=== PATIENT | female | born 1955 | race Caucasian/White ===

== ENCOUNTER 2018-04-02 18:30 | Emergency (ER) | payer OTHER ==
[~2018-04-02] VITALS: Ht 160 cm; Wt 102.0 kg
[2018-04-02 18:42] VITALS: Ht 160 cm; Wt 102.0 kg
[2018-04-02] MEDS ORDERED: KETOROLAC 30 MG INJ IM STA (21:40)
[2018-04-02] MEDS ORDERED: ACET-141 PO (23:25)
[2018-04-02] MEDS ORDERED: NITR-58 PO (23:25)
--- NOTE | 2018-04-02 23:26 | ERD ---
ER Documentation Chief Complaint Chief Complaint BODY ACHES X 2 DAYS, DIZZINESS ROS All systems reviewed and are negative except as per history of present illness. Medications Home Meds Active Scripts Acetaminophen* (Acetaminophen*) 500 MG Extra Strength Tablet, 500 MG PO Q4H PRN for PAIN AND OR ELEVATED TEMP, #30 TAB Prov:KEHINDE OSBORN DO 04/02/18 Nitrofurantoin Monohyd Macrocr* (Macrobid*) 100 Mg Capsr, 100 MG PO BID for uti for 5 Days, #10 CAP Prov:KEHINDE OSBORN DO 04/02/18 Allergies Allergies: Coded Allergies: No Known Allergy (Unverified , 04/02/18) PMhx/Soc Medical and Surgical Hx: pt denies Surgical Hx Hx Miscellaneous Medical Probl: Yes (kidney stones) Hx Alcohol Use: No Hx Substance Use: No Hx Tobacco Use: Yes (quit years ago) Smoking Status: Former smoker Physical Exam Vitals Vital Signs Date Temp Pulse Resp B/P (MAP) Pulse Ox O2 O2 Flow FiO2 Time Delivery Rate 04/02/18 102.2 93 18 128/69 93 18:42 (88) Physical Exam Const: No acute distress Head: Atraumatic Eyes: Normal Conjunctiva ENT: Normal External Ears, Nose and Mouth. Neck: Full range of motion. No meningismus. Resp: Clear to auscultation bilaterally Cardio: Regular rate and rhythm, no murmurs Abd: Soft, non tender, non distended. Normal bowel sounds Skin: No petechiae or rashes Back: No midline or flank tenderness Ext: No cyanosis, or edema Neur: Awake and alert Psych: Normal Mood and Affect Results 24 hrs Laboratory Tests Test 04/02/18 21:50 Urine Color YELLOW Urine Clarity SLIGHTLY CLOUDY Urine pH 5.0 Urine Specific [place] 1.019 Urine Ketones NEGATIVE mg/dL Urine Nitrite NEGATIVE mg/dL Urine Bilirubin NEGATIVE mg/dL Urine Urobilinogen 1+ mg/dL Urine Leukocyte Esterase NEGATIVE Marcelle/ul Urine Microscopic RBC 7 /HPF Urine Microscopic WBC 9 /HPF Urine Squamous Epithelial Cells MODERATE /HPF Urine Bacteria FEW /HPF Urine Mucus MODERATE /HPF Urine Hemoglobin 2+ mg/dL Urine Glucose NEGATIVE mg/dL Urine Total Protein 2+ mg/dl Current Medications Medications Dose Sig/Tegan Start Time Status Last (Trade) Ordered Route PRN Stop Time Admin Dose Reason Admin Ketorolac 30 mg ONCE STAT 04/02/18 DC 04/02/18 Tromethamine IM 21:40 21:57 (Toradol) 04/02/18 21:41 Ceftriaxone 1 gm ONCE ONCE 04/02/18 Sodium IM 23:30 (Rocephin) 04/02/18 23:31 Departure Diagnosis: Primary Impression: UTI (urinary tract infection) Urinary tract infection type: acute cystitis Hematuria presence: without hematuria Qualified Codes: N30.00 - Acute cystitis without hematuria Condition: Fair Patient Instructions: Understanding Urinary Tract Infections (UTIs) Referrals: [facility] YOU HAVE RECEIVED A MEDICAL SCREENING EXAM AND THE RESULTS INDICATE THAT YOU DO NOT HAVE A CONDITION THAT REQUIRES URGENT TREATMENT IN THE EMERGENCY DEPARTMENT. FURTHER EVALUATION AND TREATMENT OF YOUR CONDITION CAN WAIT UNTIL YOU ARE SEEN IN YOUR DOCTORS OFFICE WITHIN THE NEXT 1-2 DAYS. IT IS YOUR RESPONSIBILITY TO MAKE AN APPOINTMENT FOR FOLOW-UP CARE. IF YOU HAVE A PRIMARY DOCTOR --you should call your primary doctor and schedule an appointment IF YOU DO NOT HAVE A PRIMARY DOCTOR YOU CAN CALL OUR PHYSICIAN REFERRAL HOTLINE AT IF YOU CAN NOT AFFORD TO SEE A PHYSICIAN YOU CAN CHOSE FROM THE FOLLOWING [facility] [address] [facility]. [facility] [address] [facility] [facility] [address] [facility]. [facility] [address] [facility]. [facility] [address] [facility]. [facility]. [address] Additional Instructions: Call your primary care doctor TOMORROW for an appointment during the next 1-2 days.See the doctor sooner or return here if your condition worsens before your appointment time. Llame al doctor MAANA y marjorie lucie STEPHANIE PARA DENTRO DE 1-2 VAZQUEZ.Dgale a la secretaria que nosotros le instruimos hacer esta stephanie.Avise o llame si dailey condicin se empeora antes de la stephanie. Regresa aqui si peor o no mejor. KEHINDE OSBORNb 17, 2019 23:26
[2018-04-02] MEDS ORDERED: CEFTRIAXONE 1 GM INJ IM ONE (23:30)
[2018-04-02 23:51] VITALS: BP 100/55; PULSE 99; RESP 18
== END 2018-04-02 23:52 | disposition home or self-care (01) ==
LOC: FTE 18:30
DX: N30.00 Acute cystitis without hematuria (principal); Z87.891 Personal history of nicotine dependence
CPT/HCPCS: 81001; 87400; 96372; J0696; J1885; Z7502

== ENCOUNTER 2018-05-16 10:12 | Day surgery (SDC) | payer OTHER ==
[~2018-05-16] VITALS: Ht 162.6 cm; Wt 100.2 kg
[~2018-05-16 10:12] MED LIST: ACET-141 PO; NITR-58 PO
[2018-05-16 10:48] VITALS: Ht 162.6 cm; Wt 100.2 kg
[2018-05-16 11:00] VITALS: BP 146/77; PULSE 83; RESP 20
[2018-05-16] MEDS ORDERED: amlodipine PO (11:01)
[2018-05-16] MEDS ORDERED: ibuprofen PO (11:01)
[2018-05-16] MEDS ORDERED: losartan PO (11:01)
[2018-05-16] MEDS ORDERED: hctz PO (11:01)
[2018-05-16] MEDS ORDERED: MIDAZOLAM 1 MG/ML 2 ML INJ ONE ×3 (11:56)
[2018-05-16] MEDS ORDERED: FENTAnyl 50 MCG/ML VIAL ONE (11:56)
[2018-05-16 11:59] VITALS: BP 130/65; PULSE 75; RESP 16
== END 2018-05-16 13:22 | disposition home or self-care (01) ==
LOC: GIL 10:12
PROVIDERS: ATTEND Internal Medicine Gastroenterology
DX: Z12.11 Encounter for screening for malignant neoplasm of colon (principal); K57.30 Diverticulosis of large intestine without perforation or abscess without bleeding; D12.3 Benign neoplasm of transverse colon; K62.1 Rectal polyp
CPT/HCPCS: 45380; 88305; J2250; J3010; Z7610

== ENCOUNTER 2018-06-25 09:56 | Inpatient (IN) | payer OTHER ==
[~2018-06-25] VITALS: Ht 162.6 cm; Wt 98.0 kg
[~2018-06-25 09:56] MED LIST changes: -ACET-141 PO; -NITR-58 PO; +amlodipine PO; +hctz PO; +ibuprofen PO; +losartan PO
--- NOTE | 2018-06-25 13:50 | ERD ---
ER Documentation Chief Complaint Chief Complaint sob x2wks, diarrhea & nausea x1wk HPI 62-year-old female history of hypertension presents to the ED complaining of several week history of worsening generalized weakness and exertional dyspnea. Denies orthopnea or PND. Denies chest pain, palpitations, cough or hemoptysis. No leg pain or swelling. No URI symptoms or body aches. Generalized weakness but no headache, visual changes, focal weakness or numbness. No fevers or chills. ROS All systems reviewed and are negative except as per history of present illness. Medications Home Meds Reported Medications [losartan] No Conflict Check, PO DAILY 05/16/18 [ibuprofen] No Conflict Check, PO DAILY PRN for PAIN AND/OR INFLAMMATION 05/16/18 [hctz] No Conflict Check, PO DAILY 05/16/18 [amlodipine] No Conflict Check, PO DAILY 05/16/18 Allergies Allergies: Coded Allergies: tetracycline (Verified Allergy, Severe, 05/16/18) PMhx/Soc History of Surgery: No Anesthesia Reaction: No Hx Neurological Disorder: No Hx Respiratory Disorders: No Hx Cardiac Disorders: Yes (Hypertension) Hx Psychiatric Problems: No Hx Alcohol Use: No Hx Substance Use: No Hx Tobacco Use: No Smoking Status: Never smoker FmHx No stroke or cancer Physical Exam Vitals Vital Signs Date Temp Pulse Resp B/P (MAP) Pulse Ox O2 O2 Flow FiO2 Time Delivery Rate 06/25/18 Nasal 11:27 Cannula 06/25/18 98.1 98 20 127/57 93 10:09 (80) Physical Exam Const: Mild distress Head: Atraumatic Eyes: Pale Conjunctiva ENT: Normal External Ears, Nose and Mouth. Neck: Full range of motion. No JVD. Nontender. Resp: Breath sounds are equal and clear to auscultation bilaterally Cardio: Regular rate and rhythm, no murmurs Abd: Soft, obese, non tender, non distended. Normal bowel sounds Skin: No petechiae or rashes Back: No midline or flank tenderness Ext: No cyanosis. 1+ pretibial edema Neur: Awake and alert. No focal deficit Psych: Anxious but not depressed. Result Diagram: 06/25/18 1249 06/25/18 1249 Results 24 hrs Laboratory Tests Test 06/25/18 12:49 White Blood Count 63.3 10^3/ul Red Blood Count 2.08 10^6/ul Hemoglobin 6.5 g/dl Hematocrit 20.5 % Mean Corpuscular Volume 98.6 fl Mean Corpuscular Hemoglobin 31.3 pg Mean Corpuscular Hemoglobin Concent 31.7 g/dl Red Cell Distribution Width 19.1 % Platelet Count 71 10^3/UL Mean Platelet Volume 13.0 fl Immature Granulocytes % 2.100 % Neutrophils % % Lymphocytes % % Monocytes % % Eosinophils % % Basophils % % Nucleated Red Blood Cells % 0.2 /100WBC Immature Granulocytes # 1.320 10^3/ul Neutrophils # 10^3/ul Lymphocytes # 10^3/ul Monocytes # 10^3/ul Eosinophils # 10^3/ul Basophils # 10^3/ul Nucleated Red Blood Cells # 10^3/ul Sodium Level 139 mmol/L Potassium Level 4.1 mmol/L Chloride Level 99 mmol/L Carbon Dioxide Level 32 mmol/L Anion Gap 8 Blood Urea Nitrogen 12 mg/dl Creatinine 0.63 mg/dl Est Glomerular Filtrat Rate mL/min > 60 mL/min Glucose Level 107 mg/dl Calcium Level 9.0 mg/dl Total Bilirubin 0.2 mg/dl Direct Bilirubin 0.00 mg/dl Indirect Bilirubin 0.2 mg/dl Aspartate Amino Transf (AST/SGOT) 33 IU/L Alanine Aminotransferase (ALT/SGPT) 14 IU/L Alkaline Phosphatase 68 IU/L Troponin I 0.039 ng/ml B-Type Natriuretic Peptide 253 PG/ML Total Protein 7.5 g/dl Albumin 3.9 g/dl Globulin 3.60 g/dl Albumin/Globulin Ratio 1.08 Procedures/MDM DOCUMENTS REVIEWED: ED nurse, prior records EKG: Time: 10: 14. Sinus rhythm. Ventricular rate 94. Normal DE and QRS. Nonspecific ST-T wave changes. No acute elevation or depression. No ectopy. My interpretation. IMAGING: Chest AP portable. Cardiac silhouette is normal. The costophrenic angles are clear. No effusions or infiltrates. Aortic calcifications. No abnormalities of the bony thorax. My interpretation. MEDICAL DECISION MAKIN-year-old female history of hypertension presents to the ED complaining of several week history of worsening generalized weakness and exertional dyspnea. CBC reveals critical leukocytosis, anemia and thrombocytopenia. Chemistry to evaluate for renal insufficiency, electrolyte abnormalities and hyperglycemia is unremarkable. EKG negative for acute is chemic changes or dysrhythmia. Troponin is negative. No radiographic evidence of congestive heart failure or pneumonia. Patient with generalized weakness but no focal weakness, numbness, headache or indication for neuroimaging. Pulmonary embolism considered but imaging deferred at this time. Broad differential considered including but not limited to leukemia. Admit to [facility] for heme/on consultation, further evaluation and management. PATIENT CARE TRANSITIONED: Time: 13: 45, Dr. Heather Pyle. Counseled [patient and family] regarding diagnosis, diagnostic results and plan for admission. Departure Diagnosis: Primary Impression: Shortness of breath Additional Impressions: Leukocytosis Leukocytosis type: unspecified Qualified Codes: D72.829 - Elevated white blood cell count, unspecified Severe anemia Thrombocytopenia Condition: Serious BRANDON ACOSTA MD June 25, 2018 13:50
[2018-06-25] MEDS ORDERED: ONDANSETRON 4 MG INJ IV PRN (14:00)
[2018-06-25] MEDS ORDERED: ACETAMINOPHEN 325 MG TAB PO PRN (14:00)
[2018-06-25] MEDS ORDERED: SOD CHLORIDE 0.9% 1,000 ML IV SCH (14:06)
[2018-06-25] MEDS ORDERED: LOSA100T15 PO (14:20)
[2018-06-25] MEDS ORDERED: HYDR25TA6 PO (14:21)
[2018-06-25] MEDS ORDERED: AMLO-147 PO (14:21)
[2018-06-25] MEDS ORDERED: PRED10TA PO (14:21)
[2018-06-25] MEDS ORDERED: CYCL5TAB PO (14:22)
[2018-06-25] MEDS ORDERED: ACETAMINOPHEN 650 MG SUPP PR PRN (14:30)
[2018-06-25] MEDS ORDERED: NACL 0.9% 3 ML SYG IV SCH (14:30)
[2018-06-25] MEDS ORDERED: DOCUSATE SODIUM 100 MG CAP PO PRN (14:30)
[2018-06-25] MEDS ORDERED: BISACODYL (EC) 5 MG TAB PO PRN (14:30)
[2018-06-25] MEDS ORDERED: MAGNESIUM HYDROXIDE 30ML CUP PO PRN (14:30)
--- NOTE | 2018-06-25 14:35 | QN ---
Documentation Comment [id number] TUAN VIERA MD June 25, 2018 14:35
[2018-06-25 16:40] VITALS: BP 141/67; PULSE 70; RESP 18
[2018-06-25 16:54] VITALS: Ht 162.6 cm; Wt 98.0 kg
--- NOTE | 2018-06-25 17:38 | HP ---
DATE OF ADMISSION: 06/25/2018 HISTORY OF PRESENT ILLNESS: The patient is a 62-year-old female with no significant past medical his tory, presented with weakness, short of breath. No chest pain or palpitation. Denies any fever, chi lls or rigors. Blood pressure was 113/53, afebrile in the ER. Laboratory data and chest x-ray were unremarkable. WBC was 16.3, hematocrit of 20.5, platelet count of 71, sodium 139, potassium 4.1. Th e patient's BNP was 253. The patient is admitted for further management. Denies any nausea, vomitin g, chest pain, abdominal pain, hematemesis or melena. PAST MEDICAL HISTORY: History of colonoscopy per patient negative. ALLERGY HISTORY: TETRACYCLINE. FAMILY HISTORY: Negative. SOCIAL HISTORY: Negative for smoking, alcohol or drug abuse. MEDICATIONS AT HOME: Qqse-[id number] medication. REVIEW OF SYSTEMS: HEENT: Unremarkable for headache, diplopia, blurred vision, sore throat, earache or nasal discharge. RESPIRATORY: Unremarkable for hemoptysis. CARDIOVASCULAR: No chest pain or palpitation. GENITOURINARY: No hematemesis, melena, swelling. CENTRAL NERVOUS SYSTEMS: Unremarkable. PHYSICAL EXAMINATION: GENERAL: Overweight female, awake, alert. VITAL SIGNS: Stable. HEENT: Head is atraumatic, normocephalic. Pupils are equal, reactive. NECK: Supple. There is no JVD. LUNGS: Clear. CARDIOVASCULAR: S1, S2 are normal. ABDOMEN: Soft. Bowel sounds are positive. No palpable mass or hepatosplenomegaly. No guarding, re bound tenderness. EXTREMITIES: There is no cyanosis, clubbing or edema. CENTRAL NERVOUS SYSTEM: The patient is awake, alert with no focal deficit. LABORATORY DATA: WBC 16.3, hemoglobin 6.5, platelet count of 71. Sodium 139, potassium 4.1. IMPRESSION: 1. The patient has symptomatic anemia. 2. I doubt gastrointestinal bleed. 3. Leukocytosis. 4. Pancytopenia. 5. Rule out leukemia. 6. Thrombocytopenia. PLAN: Give this patient IV fluid, gentle and PPI. The patient will benefit from hematology consulta tion, but before that, we will order CT of the abdomen. Anemia study, B12, folic acid, iron, TIBC, f erritin, retic count, LDH and protein. Orders were done. Dictated By: TUAN VIERA MD BS/NTS Conf#: [id number] DID#: [id number] CC: DIEGO BAKER MD;*EndCC*
[2018-06-25 19:59] VITALS: BP 124/58; PULSE 98; RESP 20
[2018-06-26 00:15] VITALS: BP 126/60; PULSE 86; RESP 18
[2018-06-26 02:00] VITALS: BP 133/60; PULSE 89; RESP 18
[2018-06-26] MEDS: PANTOPRAZOLE (EC) 40 MG TAB PO SCH (05:53)
[2018-06-26] MEDS: ACETAMINOPHEN 325 MG TAB PO PRN ×2 (05:55→18:15)
--- NOTE | 2018-06-26 12:43 | CONS ---
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, flow cytometry is pending -check LDH, uric acid, PTT, PT, fibrinogen -needs bone marrow biopsy and aspirate for FISH and cytogenetics and molecular analysis -HLA typing -check ECHO -will need mediport -NEUTROPENIC PRECAUTIONS -ALL BLOOD PRODUCTS SHOULD BE LEUKOCYTE DEPLETION AND IRRADIATED KEEP HGB >7 AND PLT >10k CMV TESTING DO NOT USE GROWTH FACTORS IN INDUCTION PHASE -have discussed with pt that we are awaiting flow cytometry to confirm and after that molecular analysis and cytogenetics will allow us best to determine her treatment and prognosis -given complexity of care required for AML she needs to be transferred to [facility] -also needs to be evaluated by transplant team at some point depending on above study results Consultation Date/Type/Reason Admit Date/Time June 25, 2018 at 13:51 Date/Time of Note DATE: 06/26/18 TIME: 12:43 Hx of Present Illness The patient is a 62-year-old female with no significant past medical history, presented with weakness, short of breath. Here labs showed: Laboratory Tests Test 06/25/18 12:49 06/26/18 04:22 Blood Urea Nitrogen 12 mg/dl Carbon Dioxide Level 32 mmol/L Chloride Level 99 mmol/L Creatinine 0.63 mg/dl Glucose Level 107 mg/dl Hematocrit 20.5 % 21.4 % Hemoglobin 6.5 g/dl 6.7 g/dl Platelet Count 71 10^3/UL 56 10^3/UL Potassium Level 4.1 mmol/L Sodium Level 139 mmol/L White Blood Count 63.3 10^3/ul 54.0 10^3/ul I have received a call from pathology who sees a significant number of myeloblasts in the peripheral blood. Flow cytometry is pending. She denies any significant chemical exposures and has no known h/o of MDS Constitutional: no complaints, improved Eyes: no complaints ENT: no complaints Respiratory: shortness of breath Cardiovascular: no complaints Gastrointestinal: no complaints Genitourinary: no complaints Musculoskeletal: no complaints Skin: no complaints Neurologic: no complaints Endocrine: no complaints Lymphatic: no complaints Psychological: no complaints, nl mood/affect Past Medical History Home Meds Reported Medications Cyclobenzaprine Hcl* (Cyclobenzaprine Hcl*) 5 Mg Tablet, 5 MG PO QHS, #90 TAB 06/25/18 Amlodipine Besylate* (Amlodipine Besylate*) 10 Mg Tablet, 10 MG PO DAILY, #30 TAB 06/25/18 Hydrochlorothiazide* (Hydrochlorothiazide*) 25 Mg Tab, 25 MG PO DAILY, #30 TAB 06/25/18 Prednisone* (Prednisone*) 10 Mg Tab, 10 MG PO BID, TAB 06/25/18 Losartan Potassium* (Losartan Potassium*) 100 Mg Tablet, 100 MG PO DAILY, TAB 06/25/18 Discontinued Reported Medications [losartan] No Conflict Check, PO DAILY 05/16/18 [ibuprofen] No Conflict Check, PO DAILY PRN for PAIN AND/OR INFLAMMATION 05/16/18 [hctz] No Conflict Check, PO DAILY 05/16/18 [amlodipine] No Conflict Check, PO DAILY 05/16/18 Medications Current Medications Ondansetron HCl (Zofran Inj) 4 mg BRIDGE ORDER PRN IV NAUSEA/VOMITING; Start 06/25/18 at 14:00; Stop 06/26/18 at 13:59 Acetaminophen (Tylenol Tab) 650 mg ER BRIDGE PRN PO .MILD PAIN 1-3 OR TEMP; Start 06/25/18 at 14:00; Stop 06/26/18 at 13:59 Sodium Chloride 1,000 ml @ 40 mls/hr Q24H IV Last administered on 06/25/18at 18:17; Admin Dose 40 MLS/HR; Start 06/25/18 at 14:06 IV Flush (NS 3 ml) 3 ml PER PROTOCOL IV ; Start 06/25/18 at 14:30 Ondansetron HCl (Zofran Inj) 4 mg Q6H PRN IV NAUSEA/VOMITING; Start 06/25/18 at 14:30 Acetaminophen (Tylenol Tab) 650 mg Q6H PRN PO .PAIN 1-3 OR TEMP Last administered on 06/26/18at 05:55; Admin Dose 650 MG; Start 06/25/18 at 14:30 Acetaminophen (Tylenol Supp) 650 mg Q6H PRN DC .PAIN 1-3 OR TEMP; Start 06/25/18 at 14:30 Docusate Sodium (Colace) 100 mg Q12H PRN PO .CONSTIPATION; Start 06/25/18 at 14:30 Magnesium Hydroxide (Milk Of Mag) 30 ml DAILY PRN PO .CONSTIPATION; Start 06/25/18 at 14:30 Bisacodyl (Dulcolax) 5 mg DAILY PRN PO .CONSTIPATION; Start 06/25/18 at 14:30 Pantoprazole (Protonix Tab) 40 mg DAILY@06 PO Last administered on 06/26/18at 05:53; Admin Dose 40 MG; Start 06/26/18 at 06:00 Allergies: Coded Allergies: tetracycline (Verified Allergy, Severe, 06/25/18) Social History Smoking Status: Former smoker Exam/Review of Systems Exam Vitals Vital Signs Date Temp Pulse Resp B/P (MAP) Pulse Ox O2 O2 Flow FiO2 Time Delivery Rate 06/26/18 98.2 89 18 133/60 93 Room Air 02:00 (84) 06/25/18 2 14:24 Intake and Output 06/25/18 06/25/18 06/26/18 1515:00 23:00 07:00 IntakeIntake Total 520 ml 400 ml BalanceBalance 520 ml 400 ml Constitutional: alert, oriented, well developed Psych: no complaints, nl mood/affect Respiratory: normal air movement Results Result Diagram: 06/26/18 0422 06/25/18 1249 Results 24hrs Laboratory Tests Test 06/25/18 12:49 06/25/18 23:50 06/26/18 04:22 06/26/18 06:14 White Blood 63.3 H 54.0 H Count Red Blood Count 2.08 L 2.20 L Hemoglobin 6.5 *L 6.7 *L Hematocrit 20.5 L 21.4 L Mean 98.6 97.3 Corpuscular Volume Mean 31.3 30.5 Corpuscular Hemoglobin Mean 31.7 L 31.3 L Corpuscular Hemoglobin Conc ent Red Cell 19.1 H 20.4 H Distribution Width Platelet Count 71 L 56 #L Mean Platelet 13.0 H 11.9 H Volume Immature 2.100 H 1.900 H Granulocytes % Neutrophils % Segmented 2 L Neutrophils % (Manual) Band 3 2 Neutrophils % (Manual) Lymphocytes % Lymphocytes % 24 19 (Manual) Reactive 5 H 2 H Lymphocytes % (Manual) Monocytes % Monocytes % 5 13 H (Manual) Eosinophils % Basophils % Metamyelocytes 1 H 2 H % (manual) Myelocytes % 3 H 1 H (Manual) Blast Cells % 57.0 H 60.0 H (Manual) Nucleated Red 0.2 H 1 H Blood Cells % Immature 1.320 H 1.020 H Granulocytes # Neutrophils # Neutrophils # 2.4 (Manual) Band 1.8 H 1.0 H Neutrophils # Lymphocytes 15.1 H 10.2 H (Manual) Lymphocytes # Reactive 3.1 H 1.0 H Lymphocytes # Monocytes # Monocytes # 3.1 H 7.0 H (Manual) Eosinophils # Basophils # Metamyelocytes 0.6 H 1.0 H # Myelocytes # 1.8 H 0.5 H Nucleated Red Blood Cells # Platelet SIG DECREASED SIG DECREASED Estimate Giant Platelets 1 H Polychromasia 3+ 3+ Poikilocytosis 1+ Anisocytosis 3+ 1+ Microcytosis 3+ 1+ Sodium Level 139 Potassium Level 4.1 Chloride Level 99 Carbon Dioxide 32 H Level Anion Gap 8 Blood Urea 12 Nitrogen Creatinine 0.63 Est Glomerular > 60 Filtrat Rate mL/min Glucose Level 107 Calcium Level 9.0 Total Bilirubin 0.2 Direct 0.00 Bilirubin Indirect 0.2 Bilirubin Aspartate Amino 33 Transf (AST/SGO T) Alanine 14 Aminotransferas e (ALT/SGPT) Alkaline 68 Phosphatase Lactate 2460 H Dehydrogenase Troponin I 0.039 B-Type 253 H Natriuretic Peptide Total Protein 7.5 Albumin 3.9 Globulin 3.60 H Albumin/Globuli 1.08 n Ratio Urine Color YELLOW Urine Clarity CLEAR Urine pH 7.0 Urine Specific 1.010 [place] Urine Ketones NEGATIVE Urine Nitrite NEGATIVE Urine Bilirubin NEGATIVE Urine NEGATIVE Urobilinogen Urine Leukocyte NEGATIVE Esterase Urine NEGATIVE Hemoglobin Urine Glucose NEGATIVE Urine Total NEGATIVE Protein Eosinophils % 1 (Manual) Hemoglobin A1c 7.6 H Lab Scanned BLOOD TRANSFUS Report ION Medications Medication Current Medications Ondansetron HCl (Zofran Inj) 4 mg BRIDGE ORDER PRN IV NAUSEA/VOMITING; Start 06/25/18 at 14:00; Stop 06/26/18 at 13:59 Acetaminophen (Tylenol Tab) 650 mg ER BRIDGE PRN PO .MILD PAIN 1-3 OR TEMP; Start 06/25/18 at 14:00; Stop 06/26/18 at 13:59 Sodium Chloride 1,000 ml @ 40 mls/hr Q24H IV Last administered on 06/25/18at 18:17; Admin Dose 40 MLS/HR; Start 06/25/18 at 14:06 IV Flush (NS 3 ml) 3 ml PER PROTOCOL IV ; Start 06/25/18 at 14:30 Ondansetron HCl (Zofran Inj) 4 mg Q6H PRN IV NAUSEA/VOMITING; Start 06/25/18 at 14:30 Acetaminophen (Tylenol Tab) 650 mg Q6H PRN PO .PAIN 1-3 OR TEMP Last administered on 06/26/18at 05:55; Admin Dose 650 MG; Start 06/25/18 at 14:30 Acetaminophen (Tylenol Supp) 650 mg Q6H PRN DC .PAIN 1-3 OR TEMP; Start 06/25/18 at 14:30 Docusate Sodium (Colace) 100 mg Q12H PRN PO .CONSTIPATION; Start 06/25/18 at 14:30 Magnesium Hydroxide (Milk Of Mag) 30 ml DAILY PRN PO .CONSTIPATION; Start 06/25/18 at 14:30 Bisacodyl (Dulcolax) 5 mg DAILY PRN PO .CONSTIPATION; Start 06/25/18 at 14:30 Pantoprazole (Protonix Tab) 40 mg DAILY@06 PO Last administered on 06/26/18at 05:53; Admin Dose 40 MG; Start 06/26/18 at 06:00 JOSÉ MIGUEL WASSERMAN June 26, 2018 12:43
[2018-06-26 14:24] VITALS: BP 140/67; PULSE 99; RESP 16
--- NOTE | 2018-06-26 14:58 | PN ---
Date/Time of Note Date/Time of Note DATE: 06/26/18 TIME: 14:52 Assessment/Plan VTE Prophylaxis Risk score (from Ns)>0 risk: 4 SCD applied (from Ns): No SCD contraindicated: low risk/ambulating Pharmacological prophylaxis: NA/contraindicated Pharm contraindication: low risk/ambulating Lines/Catheters IV Catheter Type (from [facility] Peripheral IV Urinary Cath still in place: No Assessment/Plan Assessment/Plan 62 Y/O with 1 symptomatic anemia. with leukccytosis 2 Pancytopenia. 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 Tejada who requested the patient to be transferred to a higher level of care at [facility] or [facility] for intense chemotherapy DC IV fluids Status post 1 unit of blood, recheck H&H spoke To director case/ [facility] now for urgent transfer Also get ABG Result Diagram: 06/26/18 0422 06/25/18 1249 Results 24hrs Laboratory Tests Test 06/25/18 23:50 06/26/18 04:22 06/26/18 06:14 Urine Color YELLOW Urine Clarity CLEAR Urine pH 7.0 Urine Specific [place] 1.010 Urine Ketones NEGATIVE Urine Nitrite NEGATIVE Urine Bilirubin NEGATIVE Urine Urobilinogen NEGATIVE Urine Leukocyte Esterase NEGATIVE Urine Hemoglobin NEGATIVE Urine Glucose NEGATIVE Urine Total Protein NEGATIVE White Blood Count 54.0 H Red Blood Count 2.20 L Hemoglobin 6.7 *L Hematocrit 21.4 L Mean Corpuscular Volume 97.3 Mean Corpuscular Hemoglobin 30.5 Mean Corpuscular 31.3 L Hemoglobin Concent Red Cell Distribution Width 20.4 H Platelet Count 56 #L Mean Platelet Volume 11.9 H Immature Granulocytes % 1.900 H Neutrophils % Band Neutrophils % (Manual) 2 Lymphocytes % Lymphocytes % (Manual) 19 Reactive Lymphocytes 2 H % (Manual) Monocytes % Monocytes % (Manual) 13 H Eosinophils % Eosinophils % (Manual) 1 Basophils % Metamyelocytes % (manual) 2 H Myelocytes % (Manual) 1 H Blast Cells % (Manual) 60.0 H Nucleated Red Blood Cells % 1 H Immature Granulocytes # 1.020 H Neutrophils # Band Neutrophils # 1.0 H Lymphocytes (Manual) 10.2 H Lymphocytes # Reactive Lymphocytes # 1.0 H Monocytes # Monocytes # (Manual) 7.0 H Eosinophils # Basophils # Metamyelocytes # 1.0 H Myelocytes # 0.5 H Nucleated Red Blood Cells # Platelet Estimate SIG DECREASED Polychromasia 3+ Anisocytosis 1+ Microcytosis 1+ Hemoglobin A1c 7.6 H Lab Scanned Report BLOOD TRANSFUSION Subjective 24 Hr Interval Summary Free Text/Dictation HB 6.7 today sp 1 unit PRBC Exam/Review of Systems Exam Vitals Vital Signs Date Temp Pulse Resp B/P (MAP) Pulse Ox O2 O2 Flow FiO2 Time Delivery Rate 06/26/18 98.5 99 16 140/67 94 14:24 (91) 06/26/18 Room Air 02:00 06/25/18 2 14:24 Intake and Output 06/25/18 06/25/18 06/26/18 1515:00 23:00 07:00 IntakeIntake Total 520 ml 400 ml BalanceBalance 520 ml 400 ml Exam HEENT: Head is atraumatic, normocephalic. Pupils are equal, reactive. NECK: Supple. There is no JVD. LUNGS: Clear. CARDIOVASCULAR: S1, S2 are normal. ABDOMEN: Soft. Bowel sounds are positive. No palpable mass or hepatosplenomegaly. No guarding, rebound tenderness. EXTREMITIES: There is no cyanosis, clubbing or edema. CENTRAL NERVOUS SYSTEM: The patient is awake, alert with no focal defi Results Results 24hrs Laboratory Tests Test 06/25/18 23:50 06/26/18 04:22 06/26/18 06:14 Urine Color YELLOW Urine Clarity CLEAR Urine pH 7.0 Urine Specific [place] 1.010 Urine Ketones NEGATIVE Urine Nitrite NEGATIVE Urine Bilirubin NEGATIVE Urine Urobilinogen NEGATIVE Urine Leukocyte Esterase NEGATIVE Urine Hemoglobin NEGATIVE Urine Glucose NEGATIVE Urine Total Protein NEGATIVE White Blood Count 54.0 H Red Blood Count 2.20 L Hemoglobin 6.7 *L Hematocrit 21.4 L Mean Corpuscular Volume 97.3 Mean Corpuscular Hemoglobin 30.5 Mean Corpuscular 31.3 L Hemoglobin Concent Red Cell Distribution Width 20.4 H Platelet Count 56 #L Mean Platelet Volume 11.9 H Immature Granulocytes % 1.900 H Neutrophils % Band Neutrophils % (Manual) 2 Lymphocytes % Lymphocytes % (Manual) 19 Reactive Lymphocytes 2 H % (Manual) Monocytes % Monocytes % (Manual) 13 H Eosinophils % Eosinophils % (Manual) 1 Basophils % Metamyelocytes % (manual) 2 H Myelocytes % (Manual) 1 H Blast Cells % (Manual) 60.0 H Nucleated Red Blood Cells % 1 H Immature Granulocytes # 1.020 H Neutrophils # Band Neutrophils # 1.0 H Lymphocytes (Manual) 10.2 H Lymphocytes # Reactive Lymphocytes # 1.0 H Monocytes # Monocytes # (Manual) 7.0 H Eosinophils # Basophils # Metamyelocytes # 1.0 H Myelocytes # 0.5 H Nucleated Red Blood Cells # Platelet Estimate SIG DECREASED Polychromasia 3+ Anisocytosis 1+ Microcytosis 1+ Hemoglobin A1c 7.6 H Lab Scanned Report BLOOD TRANSFUSION Medications Medication Current Medications IV Flush (NS 3 ml) 3 ml PER PROTOCOL IV ; Start 06/25/18 at 14:30 Ondansetron HCl (Zofran Inj) 4 mg Q6H PRN IV NAUSEA/VOMITING; Start 06/25/18 at 14:30 Acetaminophen (Tylenol Tab) 650 mg Q6H PRN PO .PAIN 1-3 OR TEMP Last administered on 06/26/18at 05:55; Admin Dose 650 MG; Start 06/25/18 at 14:30 Acetaminophen (Tylenol Supp) 650 mg Q6H PRN MD .PAIN 1-3 OR TEMP; Start 06/25/18 at 14:30 Docusate Sodium (Colace) 100 mg Q12H PRN PO .CONSTIPATION; Start 06/25/18 at 14:30 Magnesium Hydroxide (Milk Of Mag) 30 ml DAILY PRN PO .CONSTIPATION; Start 06/25/18 at 14:30 Bisacodyl (Dulcolax) 5 mg DAILY PRN PO .CONSTIPATION; Start 06/25/18 at 14:30 Pantoprazole (Protonix Tab) 40 mg DAILY@06 PO Last administered on 06/26/18at 05:53; Admin Dose 40 MG; Start 06/26/18 at 06:00 PAULA FAGAN MD June 26, 2018 14:58
[2018-06-26] MEDS ORDERED: FUROSEMIDE 20 MG INJ IV ONE (15:00)
[2018-06-26 16:46] VITALS: BP 167/78; PULSE 102
[2018-06-26 18:00] VITALS: PULSE 106
[2018-06-26 20:00] VITALS: BP 132/64; PULSE 102; RESP 18
[2018-06-26] MEDS ORDERED: CEFTRIAXONE 1 GM/50 ML (PMX) 50 ML IVPB SCH (20:00)
[2018-06-27 01:15] VITALS: BP 118/57; PULSE 93; RESP 18
[2018-06-27] MEDS: PANTOPRAZOLE (EC) 40 MG TAB PO SCH (05:12)
[2018-06-27 08:19] VITALS: BP 105/54; PULSE 94; RESP 18
[2018-06-27] MEDS: ONDANSETRON 4 MG INJ IV PRN (09:44)
--- NOTE | 2018-06-27 11:06 | CONS ---
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 THis should be done at the tertiary care center where she will be treated -HLA typing -check ECHO -will need mediport -NEUTROPENIC PRECAUTIONS. CEFIPIME STARTED given low grade fevers -ALL BLOOD PRODUCTS SHOULD BE LEUKOCYTE DEPLETION AND IRRADIATED KEEP HGB >7 AND PLT >10k CMV TESTING DO NOT USE GROWTH FACTORS IN INDUCTION PHASE -have discussed with pt that we are awaiting flow cytometry to confirm and after that molecular analysis and cytogenetics will allow us best to determine her treatment and prognosis -given complexity of care required for AML she needs to be transferred to [facility] -also needs to be evaluated by transplant team at some point depending on above study results Consultation Date/Type/Reason Admit Date/Time June 25, 2018 at 13:51 Initial Consult Date 06/26/18 Type of Consult hematology Reason for Consultation AML Requesting Provider: TUAN VIERA Date/Time of Note DATE: 06/27/18 TIME: 10:55 24 HR Interval Summary Free Text/Dictation pt continues to wait for a bed. still with low grade fevers Exam/Review of Systems Exam Vitals Vital Signs Date Temp Pulse Resp B/P (MAP) Pulse Ox O2 O2 Flow FiO2 Time Delivery Rate 06/27/18 99.6 94 18 105/54 94 08:19 (71) 06/27/18 3.0 05:32 06/26/18 Nasal 21:53 Cannula Intake and Output 06/26/18 06/26/18 06/27/18 1515:00 23:00 07:00 IntakeIntake Total 760 ml 1380 ml 50 ml BalanceBalance 760 ml 1380 ml 50 ml Constitutional: alert, oriented Psych: anxiety, depression Head: normocephalic Eyes: nl conjunctiva ENMT: nl external ears & nose Neck: supple Respiratory: clear to auscultation Cardiovascular: regular rate and rhythm Gastrointestinal: soft Musculoskeletal: nl extremities to inspection Results Result Diagram: 06/27/18 0430 06/27/18 0430 Results 24hrs Laboratory Tests Test 06/26/18 15:00 5/13/19 15:36 06/26/18 17:51 06/27/18 04:30 Blood Gas Blood arterial Specimen Source Arterial Blood 06/26/2018 7:40:0 Date Drawn 0 PM Arterial Blood pH 7.494 H (Temp corrected) Arterial Blood 38.9 pCO2 (Temp correct) Arterial Blood 57.7 L pO2 (Temp corrected) Arterial Blood 29.2 H HCO3 Arterial Blood 5.5 H Base Excess Arterial Blood 90.5 L Oxygen Saturation Yared Test ACCEPTAB Arterial Blood Right Radial Gas Puncture Site Arterial 0.2 Blood Carboxyhemo globin Arterial Blood 0.8 Methemoglobin Blood Gas A-a O2 88.8 H Differential Oxyhemoglobin 89.6 L Percent Blood Gas 37.0 Temperature Blood Gas NASAL CANNULA Modality FiO2 27.0 Blood Gas RTR Notified Whom Blood Gas 06/26/2018 7:57:0 Notified Time 0 PM Hemoglobin 7.6 L 7.8 L Hematocrit 23.9 L 24.1 L Prothrombin Time 14.6 Prothrombin Time 1.1 Ratio INR International 1.13 Normalized Ratio Activated 34.4 Partial Thrombopl ast Time Uric Acid 8.5 H White Blood Count 55.9 H Red Blood Count 2.53 L Mean Corpuscular 95.3 Volume Mean Corpuscular 30.8 Hemoglobin Mean Corpuscular 32.4 Hemoglobin Concen t Red Cell 20.2 H Distribution Width Platelet Count 46 L Mean Platelet 13.2 H Volume Immature 2.400 H Granulocytes % Neutrophils % Segmented 8 L Neutrophils % (Manual) Lymphocytes % Lymphocytes % 17 (Manual) Monocytes % Monocytes % 9 (Manual) Eosinophils % Basophils % Myelocytes % 3 H (Manual) Promyelocytes % 1 H (Manual) Blast Cells % 62.0 H (Manual) Nucleated Red 0.2 H Blood Cells % Immature 1.360 H Granulocytes # Neutrophils # Lymphocytes 9.5 H (Manual) Lymphocytes # Monocytes # Monocytes # 5.0 H (Manual) Eosinophils # Basophils # Myelocytes # 1.6 H Promyelocytes # 0.5 H Nucleated Red Blood Cells # Platelet Estimate DECREASED Hypochromasia 1+ Anisocytosis 1+ Microcytosis 2+ Sodium Level 140 Potassium Level 3.9 Chloride Level 101 Carbon Dioxide 34 H Level Anion Gap 5 Blood Urea 9 Nitrogen Creatinine 0.67 Est Glomerular > 60 Filtrat Rate mL/min Glucose Level 112 Calcium Level 8.4 Phosphorus Level 4.6 Magnesium Level 1.6 L Medications Medication Current Medications IV Flush (NS 3 ml) 3 ml PER PROTOCOL IV ; Start 06/25/18 at 14:30 Ondansetron HCl (Zofran Inj) 4 mg Q6H PRN IV NAUSEA/VOMITING Last administered on 06/27/18at 09:44; Admin Dose 4 MG; Start 06/25/18 at 14:30 Acetaminophen (Tylenol Tab) 650 mg Q6H PRN PO .PAIN 1-3 OR TEMP Last administered on 06/26/18at 18:15; Admin Dose 650 MG; Start 06/25/18 at 14:30 Acetaminophen (Tylenol Supp) [address] .PAIN 1-3 OR TEMP; Start 06/25/18 at 14:30 Docusate Sodium (Colace) 100 mg Q12H PRN PO .CONSTIPATION; Start 06/25/18 at 14:30 Magnesium Hydroxide (Milk Of Mag) 30 ml DAILY PRN PO .CONSTIPATION; Start 06/25/18 at 14:30 Bisacodyl (Dulcolax) 5 mg DAILY PRN PO .CONSTIPATION; Start 06/25/18 at 14:30 Pantoprazole (Protonix Tab) 40 mg DAILY@06 PO Last administered on 06/26/18at 05:53; Admin Dose 40 MG; Start 06/26/18 at 06:00 Ceftriaxone Sodium 50 ml @ 100 mls/hr Q24H IVPB Last administered on 06/26/18at 20:52; Admin Dose 100 MLS/HR; Start 06/26/18 at 20:00 DIEGO BAKER M.D. June 27, 2018 11:06
--- NOTE | 2018-06-27 14:01 | RADRPT ---
Echocardiogram Report Patient Name: Queta MCDERMOTTnt ID: [id number] : 1955 (62y 11m)Study Date: 06/26/2018 10:21:14 AM Gender: FAccession #: [id number] Tech: Bhargavi Patel [facility] Location: [facility] Ref.Physician: TUAN VIERA Height(Cm): BSA: Weight(Kg): Quality: AdequateAccount #: Procedures: Echocardiographic Report: Transthoracic echocardiogram with complete 2D, M-Mode, and doppler examination. Indications: Coronary Artery Disease. Measurements: 2D/M Mode Doppler Measurement Value Normal Range Measurement Value Normal Range LVIDd 2D 5.2 [ 3.8 - 5.2 ] cm AV Peak Petey 1.9 [ 100.0 - 170.0 ] cm/sec LVIDs 2D 2.7 [ 2.2 - 3.5 ] cm AV Peak PG 14.0 [ 2.0 - 9.0 ] mmHg LVPWd 2D 1.3 [ 0.6 - 0.9 ] cm LVOT Peak Petey 136.0 [ 70.0 - 110.0 ] cm/sec IVSd 2D 1.2 [ 0.6 - 0.9 ] cm LVOT Peak PG 7.0 [ 2.0 - 6.0 ] mmHg AoR Diam 2D 2.8 [ 2.3 - 3.1 ] cm MV E Peak Petey 87.4 [ 60.0 - 130.0 ] cm/sec LA Dimen 2D 4.3 [ 2.7 - 3.8 ] cm MV E Peak PG 3.0 mmHg MV E/A 1.0 [ 0.8 - 1.5 ] ratio E/E' 10.2 TR Peak Petey 283.0 [ 100.0 - 280.0 ] cm/sec TR Peak PG 32.0 mmHg RVSP 35.0 [ 10.0 - 36.0 ] mmHg RA Pressure 3.0 mmHg Findings: Left Ventricle: Normal left ventricular systolic function. Normal left ventricular cavity size. Mild concentric left ventricular hypertrophy. Ejection fraction is visually estimated at 60 %. Tissue Doppler/Mitral Doppler indices are consistent with impaired relaxation (Stage I diastolic dysfunction). Right Ventricle: Normal right ventricular size. Normal right ventricular systolic function. Left Atrium: There is mild enlargement of left atrium. Right Atrium: The right atrium is normal in size. Mitral Valve: Normal appearance of the mitral valve. Mild mitral annular calcification. Trace mitral regurgitation. Aortic Valve: Normal appearance of the aortic valve. No significant aortic stenosis or insufficiency. Tricuspid Valve: Normal appearance of the tricuspid valve. Estimated peak PA systolic pressure 35 mmHg. There is trace tricuspid regurgitation. Pulmonic Valve: Pulmonic valve not well visualized. Pericardium: Normal pericardium with no significant pericardial effusion. Aorta: Normal aortic root. IVC: Normal size and normal respiratory collapse consistent with normal right atrial pressure. Conclusions: Normal left ventricular systolic function. Normal left ventricular cavity size. Mild concentric left ventricular hypertrophy. Ejection fraction is visually estimated at 60 %. Tissue Doppler/Mitral Doppler indices are consistent with impaired relaxation (Stage I diastolic dysfunction). There is mild enlargement of left atrium. Normal appearance of the mitral valve. Mild mitral annular calcification. Trace mitral regurgitation. Normal appearance of the tricuspid valve. Estimated peak PA systolic pressure 35 mmHg. There is trace tricuspid regurgitation. Electronically Signed By: Shyam Vogel 2018-06-27 14:00:59 PDT
[2018-06-27 14:44] VITALS: BP 131/60; PULSE 67; RESP 18
[2018-06-27 15:07] VITALS: BP 121/58; PULSE 89; RESP 18
--- NOTE | 2018-06-27 15:59 | PN ---
Date/Time of Note Date/Time of Note DATE: 06/27/18 TIME: 15:55 Assessment/Plan VTE Prophylaxis Risk score (from Ns)>0 risk: 4 SCD applied (from Ns): Yes Pharmacological prophylaxis: NA/contraindicated Pharm contraindication: low risk/ambulating Lines/Catheters IV Catheter Type (from [facility]): [place] Lock Urinary Cath still in place: No Assessment/Plan Assessment/Plan Assessment/Plan 62 Y/O with 1 symptomatic anemia. with leukccytosis now with flow cytometry suggestive of AML 2 Pancytopenia. 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 at [facility] 7 neutropenic fever Plan -MediPort could not be done today as urine the radiologist had to go -Transfer process in place patient is awaiting transfer to [facility] -Oncology labs are pending -Neutropenic precautions - s/p 1 unit PRBC yesterday - bone marrow biopsy today and to be done at the tertiary center - iv cefepime - gi/dvt prophylaxsis Result Diagram: 06/27/18 0430 06/27/18 0430 Results 24hrs Laboratory Tests Test 06/26/18 17:51 06/27/18 04:30 Prothrombin Time 14.6 Prothrombin Time Ratio 1.1 INR International Normalized Ratio 1.13 Activated Partial Thromboplast Time 34.4 Uric Acid 8.5 H White Blood Count 55.9 H Red Blood Count 2.53 L Hemoglobin 7.8 L Hematocrit 24.1 L Mean Corpuscular Volume 95.3 Mean Corpuscular Hemoglobin 30.8 Mean Corpuscular Hemoglobin Concent 32.4 Red Cell Distribution Width 20.2 H Platelet Count 46 L Mean Platelet Volume 13.2 H Immature Granulocytes % 2.400 H Neutrophils % Segmented Neutrophils % (Manual) 8 L Lymphocytes % Lymphocytes % (Manual) 17 Monocytes % Monocytes % (Manual) 9 Eosinophils % Basophils % Myelocytes % (Manual) 3 H Promyelocytes % (Manual) 1 H Blast Cells % (Manual) 62.0 H Nucleated Red Blood Cells % 0.2 H Immature Granulocytes # 1.360 H Neutrophils # Lymphocytes (Manual) 9.5 H Lymphocytes # Monocytes # Monocytes # (Manual) 5.0 H Eosinophils # Basophils # Myelocytes # 1.6 H Promyelocytes # 0.5 H Nucleated Red Blood Cells # Platelet Estimate DECREASED Hypochromasia 1+ Anisocytosis 1+ Microcytosis 2+ Sodium Level 140 Potassium Level 3.9 Chloride Level 101 Carbon Dioxide Level 34 H Anion Gap 5 Blood Urea Nitrogen 9 Creatinine 0.67 Est Glomerular Filtrat Rate mL/min > 60 Glucose Level 112 Calcium Level 8.4 Phosphorus Level 4.6 Magnesium Level 1.6 L Subjective 24 Hr Interval Summary Free Text/Dictation She says that she feels better today. low grade fevers Exam/Review of Systems Exam Vitals Vital Signs Date Temp Pulse Resp B/P (MAP) Pulse Ox O2 O2 Flow FiO2 Time Delivery Rate 06/27/18 98.5 89 18 121/58 94 15:07 (79) 06/27/18 Nasal 2.0 08:45 Cannula Intake and Output 06/26/18 06/26/18 06/27/18 1515:00 23:00 07:00 IntakeIntake Total 760 ml 1380 ml 50 ml BalanceBalance 760 ml 1380 ml 50 ml Exam HEENT: Head is atraumatic, normocephalic. Pupils are equal, reactive. NECK: Supple. There is no JVD. LUNGS: Clear. CARDIOVASCULAR: S1, S2 are normal. ABDOMEN: Soft. Bowel sounds are positive. No palpable mass or hepatosplenomegaly. No guarding, rebound tenderness. EXTREMITIES: There is no cyanosis, clubbing or edema. CENTRAL NERVOUS SYSTEM: The patient is awake, alert with no focal defi Results Results Results 24hrs Laboratory Tests Test 06/26/18 17:51 06/27/18 04:30 Prothrombin Time 14.6 Prothrombin Time Ratio 1.1 INR International Normalized Ratio 1.13 Activated Partial Thromboplast Time 34.4 Uric Acid 8.5 H White Blood Count 55.9 H Red Blood Count 2.53 L Hemoglobin 7.8 L Hematocrit 24.1 L Mean Corpuscular Volume 95.3 Mean Corpuscular Hemoglobin 30.8 Mean Corpuscular Hemoglobin Concent 32.4 Red Cell Distribution Width 20.2 H Platelet Count 46 L Mean Platelet Volume 13.2 H Immature Granulocytes % 2.400 H Neutrophils % Segmented Neutrophils % (Manual) 8 L Lymphocytes % Lymphocytes % (Manual) 17 Monocytes % Monocytes % (Manual) 9 Eosinophils % Basophils % Myelocytes % (Manual) 3 H Promyelocytes % (Manual) 1 H Blast Cells % (Manual) 62.0 H Nucleated Red Blood Cells % 0.2 H Immature Granulocytes # 1.360 H Neutrophils # Lymphocytes (Manual) 9.5 H Lymphocytes # Monocytes # Monocytes # (Manual) 5.0 H Eosinophils # Basophils # Myelocytes # 1.6 H Promyelocytes # 0.5 H Nucleated Red Blood Cells # Platelet Estimate DECREASED Hypochromasia 1+ Anisocytosis 1+ Microcytosis 2+ Sodium Level 140 Potassium Level 3.9 Chloride Level 101 Carbon Dioxide Level 34 H Anion Gap 5 Blood Urea Nitrogen 9 Creatinine 0.67 Est Glomerular Filtrat Rate mL/min > 60 Glucose Level 112 Calcium Level 8.4 Phosphorus Level 4.6 Magnesium Level 1.6 L Medications Medication Current Medications IV Flush (NS 3 ml) 3 ml PER PROTOCOL IV ; Start 06/25/18 at 14:30 Ondansetron HCl (Zofran Inj) 4 mg Q6H PRN IV NAUSEA/VOMITING Last administered on 06/27/18at 09:44; Admin Dose 4 MG; Start 06/25/18 at 14:30 Acetaminophen (Tylenol Tab) 650 mg Q6H PRN PO .PAIN 1-3 OR TEMP Last administered on 06/26/18at 18:15; Admin Dose 650 MG; Start 06/25/18 at 14:30 Acetaminophen (Tylenol Supp) 650 mg Q6H PRN MS .PAIN 1-3 OR TEMP; Start 06/25/18 at 14:30 Docusate Sodium (Colace) 100 mg Q12H PRN PO .CONSTIPATION; Start 06/25/18 at 14:30 Magnesium Hydroxide (Milk Of Mag) 30 ml DAILY PRN PO .CONSTIPATION; Start 06/25/18 at 14:30 Bisacodyl (Dulcolax) 5 mg DAILY PRN PO .CONSTIPATION; Start 06/25/18 at 14:30 Pantoprazole (Protonix Tab) 40 mg DAILY@06 PO Last administered on 06/26/18at 05:53; Admin Dose 40 MG; Start 06/26/18 at 06:00 Magnesium Sulfate 50 ml @ 25 mls/hr ONCE ONCE IVPB ; Start 06/27/18 at 17:00; Stop 06/27/18 at 18:59 Cefepime HCl 50 ml @ 100 mls/hr Q12 IVPB ; Start 06/27/18 at 16:00; Status PAULA QUINTANILLA MD June 27, 2018 15:59
[2018-06-27] MEDS ORDERED: MAGNESIUM SULFATE 2 GM/50 ML 50 ML IVPB ONE (17:00)
[2018-06-27] MEDS: CEFEPIME 1GM/50 ML (PMX) 50 ML IVPB SCH (18:07)
[2018-06-27 19:34] VITALS: BP 143/68; PULSE 109; RESP 18
[2018-06-27] MEDS: ACETAMINOPHEN 325 MG TAB PO PRN (19:59)
[2018-06-27] MEDS ORDERED: VANCOMYCIN IV PER PHARMACY XX SCH (21:00)
[2018-06-27] MEDS: SOD CHLORIDE 0.9% 1,000 ML IV SCH (21:44)
[2018-06-27] MEDS ORDERED: VANCOMYCIN HCL 2 GM in SOD CHLORIDE 0.9% 500 ML IVPB ONE (23:00)
[2018-06-28 01:41] VITALS: BP 125/60; PULSE 88; RESP 18
[2018-06-28] MEDS: PANTOPRAZOLE (EC) 40 MG TAB PO SCH (05:12)
[2018-06-28] MEDS: CEFEPIME 1GM/50 ML (PMX) 50 ML IVPB SCH ×2 (05:13→16:10)
[2018-06-28] MEDS: ACETAMINOPHEN 325 MG TAB PO PRN ×3 (05:17→22:50)
[2018-06-28] MEDS ORDERED: POLYMYXIN/BACITRACIN 1L IRRIG ONE (07:28)
[2018-06-28 08:20] VITALS: BP 108/58; PULSE 85; RESP 18
[2018-06-28] MEDS: VANCOMYCIN 1 GM 250 ML IVPB SCH ×2 (11:11→22:51)
--- NOTE | 2018-06-28 13:30 | CONS ---
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, favor AML with monocytic differentiation -not in DIC by PTT/PT check fibrinogen -start allopurinol for elevated uric acid -needs bone marrow biopsy and aspirate for FISH and cytogenetics and molecular analysis -HLA typing -check ECHO -will need mediport -EMPIRIC ABX FOR NEUTROPENIC FEVERS -NEUTROPENIC PRECAUTIONS -ALL BLOOD PRODUCTS SHOULD BE LEUKOCYTE DEPLETION AND IRRADIATED KEEP HGB >7 AND PLT >10k CMV TESTING DO NOT USE GROWTH FACTORS IN INDUCTION PHASE -have discussed with pt that molecular analysis and cytogenetics will allow us best to determine her treatment and prognosis -given complexity of care required for AML she needs to be transferred to [facility] -also needs to be evaluated by transplant team at some point depending on above study results Consultation Date/Type/Reason Admit Date/Time June 25, 2018 at 13:51 Initial Consult Date Requesting Provider: TUAN VIERA MD Date/Time of Note DATE: 06/28/18 TIME: 13:28 24 HR Interval Summary Free Text/Dictation having fevers started on empiric abx Exam/Review of Systems Exam Vitals Vital Signs Date Temp Pulse Resp B/P (MAP) Pulse Ox O2 O2 Flow FiO2 Time Delivery Rate 06/28/18 3.0 09:10 06/28/18 99.0 85 18 108/58 93 08:20 (75) 06/28/18 Nasal 08:00 Cannula Intake and Output 06/27/18 06/27/18 06/28/18 1515:00 23:00 07:00 IntakeIntake Total 852 ml 900 ml BalanceBalance 852 ml 900 ml Constitutional: alert, oriented, well developed Psych: no complaints, nl mood/affect Results Result Diagram: 06/28/18 0424 06/28/18 0424 Results 24hrs Laboratory Tests Test 06/27/18 22:10 06/28/18 04:24 Lactic Acid Level 1.5 White Blood Count 59.2 H Red Blood Count 2.49 L Hemoglobin 7.5 L Hematocrit 24.2 L Mean Corpuscular Volume 97.2 Mean Corpuscular Hemoglobin 30.1 Mean Corpuscular Hemoglobin Concent 31.0 L Red Cell Distribution Width 19.9 H Platelet Count 44 L Mean Platelet Volume 13.5 H Immature Granulocytes % 2.600 H Neutrophils % Segmented Neutrophils % (Manual) 6 L Band Neutrophils % (Manual) 2 Lymphocytes % Lymphocytes % (Manual) 14 L Reactive Lymphocytes % (Manual) 6 H Monocytes % Monocytes % (Manual) 24 H Eosinophils % Basophils % Blast Cells % (Manual) 48.0 H Nucleated Red Blood Cells % 0.2 H Immature Granulocytes # 1.540 H Neutrophils # Neutrophils # (Manual) 4.2 Band Neutrophils # 1.1 H Lymphocytes (Manual) 8.2 H Lymphocytes # Reactive Lymphocytes # 3.5 H Monocytes # Monocytes # (Manual) 14.2 H Eosinophils # Basophils # Nucleated Red Blood Cells # Platelet Estimate SIG DECREASED Polychromasia 1+ Poikilocytosis 2+ Anisocytosis 1+ Microcytosis 1+ Spherocytes 1+ Sodium Level 140 Potassium Level 4.5 Chloride Level 101 Carbon Dioxide Level 31 Anion Gap 8 Blood Urea Nitrogen 12 Creatinine 0.66 Est Glomerular Filtrat Rate mL/min > 60 Glucose Level 117 Calcium Level 8.5 Medications Medication Current Medications IV Flush (NS 3 ml) 3 ml PER PROTOCOL IV ; Start 06/25/18 at 14:30 Ondansetron HCl (Zofran Inj) 4 mg Q6H PRN IV NAUSEA/VOMITING Last administered on 06/27/18at 09:44; Admin Dose 4 MG; Start 06/25/18 at 14:30 Acetaminophen (Tylenol Tab) 650 mg Q6H PRN PO .PAIN 1-3 OR TEMP Last administered on 06/28/18at 05:17; Admin Dose 650 MG; Start 06/25/18 at 14:30 Acetaminophen (Tylenol Supp) 650 mg Q6H PRN [place] .PAIN 1-3 OR TEMP; Start 06/25/18 at 14:30 Docusate Sodium (Colace) 100 mg Q12H PRN PO .CONSTIPATION; Start 06/25/18 at 14:30 Magnesium Hydroxide (Milk Of Mag) 30 ml DAILY PRN PO .CONSTIPATION; Start 06/25/18 at 14:30 Bisacodyl (Dulcolax) 5 mg DAILY PRN PO .CONSTIPATION Last administered on 06/28/18at 05:56; Admin Dose 5 MG; Start 06/25/18 at 14:30 Pantoprazole (Protonix Tab) 40 mg DAILY@06 PO Last administered on 06/28/18at 05:12; Admin Dose 40 MG; Start 06/26/18 at 06:00 Cefepime HCl 50 ml @ 100 mls/hr Q12H IVPB Last administered on 06/28/18at 05:13; Admin Dose 100 MLS/HR; Start 06/27/18 at 17:00 Sodium Chloride 1,000 ml @ 50 mls/hr Q20H IV Last administered on 06/27/18at 21:44; Admin Dose 50 MLS/HR; Start 06/27/18 at 21:00 Vancomycin HCl (Vanco Iv Per Pharmacy) VANCOMYCIN PER PHARMACY PER PROTOCOL XX ; Start 06/27/18 at 21:00 Vancomycin HCl 250 ml @ 125 mls/hr Q12H IVPB Last administered on 06/28/18at 11:11; Admin Dose 125 MLS/HR; Start 06/28/18 at 11:00 Miscellaneous Information (*Rx Drug Level Order Reminder*) VANCO TROUGH ON 06/14... 1000 ONCE XX ; Start 06/29/18 at 10:00; Stop 06/29/18 at 10:01 JOSÉ MIGUEL WASSERMAN June 28, 2018 13:30
[2018-06-28] MEDS ORDERED: HEPARIN 1000 UNITS/ML 10 ML INJ ONE (14:15)
[2018-06-28] MEDS ORDERED: LIDOCAINE 1% (MDV) 20 ML INJ ONE (14:15)
[2018-06-28] MEDS ORDERED: MIDAZOLAM 1 MG/ML 2 ML INJ ONE (14:16)
[2018-06-28] MEDS ORDERED: FENTAnyl 50 MCG/ML VIAL ONE (14:16)
--- NOTE | 2018-06-28 14:19 | PN ---
Date/Time of Note Date/Time of Note DATE: 06/28/18 TIME: 14:17 Assessment/Plan VTE Prophylaxis Risk score (from Ns)>0 risk: 4 SCD applied (from Ns): Yes Pharmacological prophylaxis: NA/contraindicated Pharm contraindication: low risk/ambulating Lines/Catheters IV Catheter Type (from [facility]): [facility] Urinary Cath still in place: No Assessment/Plan Hospital Course 62 Y/O with 1 symptomatic anemia. with leukccytosis now with flow cytometry suggestive of AML 2 Pancytopenia. 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 at [facility] 7 neutropenic fever Plan -MediPort today -Transfer process in place patient is awaiting transfer to [facility], bed awaiting> spoke to home health care case manager -Oncology labs are pending - cx neg so far, cw vanco/cefepime - hyperurincemia> started allopurinol - pt will need bone marrow biopsy> per onc at higher level -Neutropenic precautions - gi/dvt prophylaxsis Result Diagram: 06/28/18 0424 06/28/18 0424 Results 24hrs Laboratory Tests Test 06/27/18 22:10 06/28/18 04:24 Lactic Acid Level 1.5 White Blood Count 59.2 H Red Blood Count 2.49 L Hemoglobin 7.5 L Hematocrit 24.2 L Mean Corpuscular Volume 97.2 Mean Corpuscular Hemoglobin 30.1 Mean Corpuscular Hemoglobin Concent 31.0 L Red Cell Distribution Width 19.9 H Platelet Count 44 L Mean Platelet Volume 13.5 H Immature Granulocytes % 2.600 H Neutrophils % Segmented Neutrophils % (Manual) 6 L Band Neutrophils % (Manual) 2 Lymphocytes % Lymphocytes % (Manual) 14 L Reactive Lymphocytes % (Manual) 6 H Monocytes % Monocytes % (Manual) 24 H Eosinophils % Basophils % Blast Cells % (Manual) 48.0 H Nucleated Red Blood Cells % 0.2 H Immature Granulocytes # 1.540 H Neutrophils # Neutrophils # (Manual) 4.2 Band Neutrophils # 1.1 H Lymphocytes (Manual) 8.2 H Lymphocytes # Reactive Lymphocytes # 3.5 H Monocytes # Monocytes # (Manual) 14.2 H Eosinophils # Basophils # Nucleated Red Blood Cells # Platelet Estimate SIG DECREASED Polychromasia 1+ Poikilocytosis 2+ Anisocytosis 1+ Microcytosis 1+ Spherocytes 1+ Sodium Level 140 Potassium Level 4.5 Chloride Level 101 Carbon Dioxide Level 31 Anion Gap 8 Blood Urea Nitrogen 12 Creatinine 0.66 Est Glomerular Filtrat Rate mL/min > 60 Glucose Level 117 Calcium Level 8.5 Subjective 24 Hr Interval Summary Free Text/Dictation had fevers at 102 last night feels ok now getting portacath Exam/Review of Systems Exam Vitals Vital Signs Date Temp Pulse Resp B/P (MAP) Pulse Ox O2 O2 Flow FiO2 Time Delivery Rate 06/28/18 3.0 09:10 06/28/18 99.0 85 18 108/58 93 08:20 (75) 06/28/18 Nasal 08:00 Cannula Intake and Output 06/27/18 06/27/18 06/28/18 1515:00 23:00 07:00 IntakeIntake Total 852 ml 900 ml BalanceBalance 852 ml 900 ml Exam HEENT: Head is atraumatic, normocephalic. Pupils are equal, reactive. NECK: Supple. There is no JVD. LUNGS: Clear. CARDIOVASCULAR: S1, S2 are normal. ABDOMEN: Soft. Bowel sounds are positive. No palpable mass or hepatosplenomegaly. No guarding, rebound tenderness. EXTREMITIES: There is no cyanosis, clubbing or edema. CENTRAL NERVOUS SYSTEM: The patient is awake, alert with no focal defi Results Results Results 24hrs Laboratory Tests Test 06/27/18 22:10 06/28/18 04:24 Lactic Acid Level 1.5 White Blood Count 59.2 H Red Blood Count 2.49 L Hemoglobin 7.5 L Hematocrit 24.2 L Mean Corpuscular Volume 97.2 Mean Corpuscular Hemoglobin 30.1 Mean Corpuscular Hemoglobin Concent 31.0 L Red Cell Distribution Width 19.9 H Platelet Count 44 L Mean Platelet Volume 13.5 H Immature Granulocytes % 2.600 H Neutrophils % Segmented Neutrophils % (Manual) 6 L Band Neutrophils % (Manual) 2 Lymphocytes % Lymphocytes % (Manual) 14 L Reactive Lymphocytes % (Manual) 6 H Monocytes % Monocytes % (Manual) 24 H Eosinophils % Basophils % Blast Cells % (Manual) 48.0 H Nucleated Red Blood Cells % 0.2 H Immature Granulocytes # 1.540 H Neutrophils # Neutrophils # (Manual) 4.2 Band Neutrophils # 1.1 H Lymphocytes (Manual) 8.2 H Lymphocytes # Reactive Lymphocytes # 3.5 H Monocytes # Monocytes # (Manual) 14.2 H Eosinophils # Basophils # Nucleated Red Blood Cells # Platelet Estimate SIG DECREASED Polychromasia 1+ Poikilocytosis 2+ Anisocytosis 1+ Microcytosis 1+ Spherocytes 1+ Sodium Level 140 Potassium Level 4.5 Chloride Level 101 Carbon Dioxide Level 31 Anion Gap 8 Blood Urea Nitrogen 12 Creatinine 0.66 Est Glomerular Filtrat Rate mL/min > 60 Glucose Level 117 Calcium Level 8.5 Medications Medication Current Medications IV Flush (NS 3 ml) 3 ml PER PROTOCOL IV ; Start 06/25/18 at 14:30 Ondansetron HCl (Zofran Inj) 4 mg Q6H PRN IV NAUSEA/VOMITING Last administered on 06/27/18at 09:44; Admin Dose 4 MG; Start 06/25/18 at 14:30 Acetaminophen (Tylenol Tab) 650 mg Q6H PRN PO .PAIN 1-3 OR TEMP Last admini stered on 06/28/18at 05:17; Admin Dose 650 MG; Start 06/25/18 at 14:30 Acetaminophen (Tylenol Supp) 650 mg Q6H PRN [place] .PAIN 1-3 OR TEMP; Start 06/25/18 at 14:30 Docusate Sodium (Colace) 100 mg Q12H PRN PO .CONSTIPATION; Start 06/25/18 at 14:30 Magnesium Hydroxide (Milk Of Mag) 30 ml DAILY PRN PO .CONSTIPATION; Start 06/25/18 at 14:30 Bisacodyl (Dulcolax) 5 mg DAILY PRN PO .CONSTIPATION Last administered on 06/28/18at 05:56; Admin Dose 5 MG; Start 06/25/18 at 14:30 Pantoprazole (Protonix Tab) 40 mg DAILY@06 PO Last administered on 06/28/18at 05:12; Admin Dose 40 MG; Start 06/26/18 at 06:00 Cefepime HCl 50 ml @ 100 mls/hr Q12H IVPB Last administered on 06/28/18at 05:13; Admin Dose 100 MLS/HR; Start 06/27/18 at 17:00 Sodium Chloride 1,000 ml @ 50 mls/hr Q20H IV Last administered on 06/27/18at 21:44; Admin Dose 50 MLS/HR; Start 06/27/18 at 21:00 Vancomycin HCl (Vanco Iv Per Pharmacy) VANCOMYCIN PER PHARMACY PER PROTOCOL XX ; Start 06/27/18 at 21:00 Vancomycin HCl 250 ml @ 125 mls/hr Q12H IVPB Last administered on 06/28/18at 11:11; Admin Dose 125 MLS/HR; Start 06/28/18 at 11:00 Miscellaneous Information (*Rx Drug Level Order Reminder*) VANCO TROUGH ON 06/14... 1000 ONCE XX ; Start 06/29/18 at 10:00; Stop 06/29/18 at 10:01 Allopurinol (Zyloprim) 300 mg DAILY PO ; Start 06/29/18 at 09:00 PAULA FAGAN MD June 28, 2018 14:19
--- NOTE | 2018-06-28 16:58 | RADRPT ---
PROCEDURE: FLUOROSCOPIC AND ULTRASONOGRAPHIC-GUIDED PLACEMENT OF RIGHT CHEST PORT. CLINICAL INDICATION: Venous access for chemotherapy. TECHNIQUE: Informed consent was obtained. The procedure, risks, benefits, complications and alternatives were e xplained to the patient. Risks including bleeding, infection, and pneumothorax were explained. The p atient understood and was willing to proceed. A procedural pause was performed. The patient's name, d ate of , and procedure to be performed were verified. The central line was inserted with all el ements of maximal sterile barrier technique. All of the following were used: head covering, facial ma sk, sterile gown, sterile gloves, a large sterile sheet, hand hygiene, and 2% chlorhexidine for cuta neous antisepsis. The right neck and anterior/superior chest wall were prepped and draped in usual sterile fashion. Limited sonography of the right neck was then performed. Noted is a patent right internal jugular vei n. Following the local injection of 1% lidocaine, the right internal jugular vein was punctured under so nographic guidance with a 20-gauge needle through which a 0.018 inch floppy tip guidewire was advance d into the superior vena cava, then the right atrium with fluoroscopic guidance. The tract was dila bridgette to 5 Brazilian and the wire was then replaced with a 0.035 in guidewire. A site just inferior to the clavicle in the superior anterior right chest wall was localized. One per cent lidocaine was used as local anesthesia. A transverse 2.5 cm incision was made utilizing a 15 justine de scalpel. Utilizing blunt dissection a subcutaneous pocket was created inferior to the incision. Th e cavity was flushed with approximately 40 cc of PB antibiotic solution. The catheter was tunneled underneath the skin from the newly created pocket to the puncture site in t he neck. The central line catheter was pulled through the tract. Serial dilatation was then performed and a 7 Brazilian peel away sheath was introduced. The catheter was then advanced through the peel-away sheath until the tip was positioned in the right atrium. The peel-away sheath was removed. The tennille ter was flushed, clamped, and cut to the appropriate length. The 6.6 Brazilian catheter was then connected to the [employer] power port. The port was then placed into the pocket. Prior to closing the instrument and sponge count was verified and was correct. The s ubcutaneous tissue was closed with 3-0 Vicryl interrupted suture. The skin at the site of the pocket and in the neck was closed with 4-0 Vicryl suture in a running subcuticular technique. The port was f lushed with 1500 units of heparin in 1.5 cc utilizing a Alejandra needle. The needle was removed. A dress ing was applied. Specimens: None. Blood loss: 5 ml. Complications: None. Anesthesia: Local and moderate sedation. Graft/Implant: Right chest port. COMPARISON: None. FINDINGS: Ultrasound images were recorded and stored in the patient's medical record. Final radiographic images demonstrate the tip of the catheter in the upper right atrium. A total of 0.5 minutes of fluoroscopy time was used. 3 images of the chest were obtained with the image intensi fier. The ultrasound images demonstrate the needle entering the internal jugular vein. IMPRESSION: Successful ultrasonographic and fluoroscopic guided placement of right chest power port. RPTAT: QQ Physician Lizbet Date Time Electronically viewed and signed by Physician Lizbet on 06/28/2018 16:57 rV/
[2018-06-28 19:21] VITALS: BP 117/55; PULSE 98; RESP 18
[2018-06-28] MEDS: SOD CHLORIDE 0.9% 1,000 ML IV SCH ×2 (19:37→22:55)
[2018-06-29] VITALS (7 sets, daily range): BP systolic 115–166; BP diastolic 4–80; PULSE 92–102; RESP 18–19
[2018-06-29] MEDS: CEFEPIME 1GM/50 ML (PMX) 50 ML IVPB SCH ×2 (05:31→17:06)
[2018-06-29] MEDS: PANTOPRAZOLE (EC) 40 MG TAB PO SCH (05:33)
[2018-06-29] MEDS: ACETAMINOPHEN 325 MG TAB PO PRN ×2 (05:34→14:01)
[2018-06-29] MEDS: ONDANSETRON 4 MG INJ IV PRN (05:37)
[2018-06-29] MEDS ORDERED: HYDROXYUREA 500 MG CAP PO SCH (09:00)
[2018-06-29] MEDS ORDERED: ALLOPURINOL 300 MG TAB PO SCH ×2 (09:00)
[2018-06-29] MEDS: VANCOMYCIN 1 GM 250 ML IVPB SCH (11:48)
[2018-06-29] MEDS: SOD CHLORIDE 0.9% 1,000 ML IV SCH (13:00)
--- NOTE | 2018-06-29 13:09 | CONS ---
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 PT INR ok -uric acid > 8. allopurinol 300mg q day started -needs bone marrow biopsy and aspirate for FISH and cytogenetics and molecular analysis. THis should be done at the tertiary care center where she will be treated -HLA typing -check ECHO. to be done today -mediport ordered -NEUTROPENIC PRECAUTIONS. CEFIPIME STARTED given low grade fevers -ALL BLOOD PRODUCTS SHOULD BE LEUKOCYTE DEPLETION AND IRRADIATED KEEP HGB >7 AND PLT >10k. 2 units of PRBCs ordered today CMV TESTING DO NOT USE GROWTH FACTORS IN INDUCTION PHASE -have discussed with pt that we are awaiting flow cytometry to confirm and after that molecular analysis and cytogenetics will allow us best to determine her treatment and prognosis -given complexity of care required for AML she needs to be transferred to [facility] -also needs to be evaluated by transplant team at some point depending on above study results Consultation Date/Type/Reason Admit Date/Time June 25, 2018 at 13:51 Initial Consult Date 06/26/18 Type of Consult hematology Reason for Consultation AML Requesting Provider: TUAN VIERA MD Date/Time of Note DATE: 06/29/18 TIME: 13:07 24 HR Interval Summary Free Text/Dictation no acute overnight events Subjective hx not possible: pt critical Exam/Review of Systems Exam Vitals Vital Signs Date Temp Pulse Resp B/P (MAP) Pulse Ox O2 O2 Flow FiO2 Time Delivery Rate 06/29/18 3.0 08:59 06/29/18 99.6 94 19 115/56 91 07:45 (75) 06/28/18 Nasal 20:00 Cannula Intake and Output 06/28/18 06/28/18 06/29/18 1515:00 23:00 07:00 IntakeIntake Total 1480 ml 525 ml BalanceBalance 1480 ml 525 ml Constitutional: alert, distress, frail Psych: anxiety, depression Head: normocephalic Eyes: nl conjunctiva ENMT: nl external ears & nose Neck: supple Respiratory: clear to auscultation Cardiovascular: regular rate and rhythm Gastrointestinal: soft Musculoskeletal: nl extremities to inspection Results Result Diagram: 06/29/18 0439 06/29/18 0439 Results 24hrs Laboratory Tests Test 06/29/18 04:39 06/29/18 08:04 06/29/18 10:34 White Blood Count 36.0 #H Red Blood Count 2.21 L Hemoglobin 6.7 *L Hematocrit 21.4 L Mean Corpuscular Volume 96.8 Mean Corpuscular Hemoglobin 30.3 Mean Corpuscular Hemoglobin Concent 31.3 L Red Cell Distribution Width 19.5 H Platelet Count 25 #*L Mean Platelet Volume Immature Granulocytes % 2.200 H Neutrophils % Segmented Neutrophils % (Manual) 5 L Lymphocytes % Lymphocytes % (Manual) 27 Reactive Lymphocytes % (Manual) 2 H Monocytes % Monocytes % (Manual) 11 Eosinophils % Basophils % Metamyelocytes % (manual) 1 H Blast Cells % (Manual) 54.0 H Nucleated Red Blood Cells % 0.2 H Immature Granulocytes # 0.790 H Neutrophils # Lymphocytes (Manual) 9.7 H Lymphocytes # Reactive Lymphocytes # 0.7 H Monocytes # Monocytes # (Manual) 3.9 H Eosinophils # Basophils # Metamyelocytes # 0.3 H Nucleated Red Blood Cells # Platelet Estimate DECREASED Polychromasia 3+ Anisocytosis 1+ Microcytosis 1+ Sodium Level 141 Potassium Level 4.3 Chloride Level 105 Carbon Dioxide Level 29 Anion Gap 7 Blood Urea Nitrogen 10 Creatinine 0.63 Est Glomerular Filtrat Rate mL/min > 60 Glucose Level 126 Calcium Level 8.2 L Phosphorus Level 3.6 Magnesium Level 2.0 Uric Acid 6.7 Vancomycin Level Trough 6.4 L Medications Medication Current Medications IV Flush (NS 3 ml) 3 ml PER PROTOCOL IV ; Start 06/25/18 at 14:30 Ondansetron HCl (Zofran Inj) 4 mg Q6H PRN IV NAUSEA/VOMITING Last administered on 06/29/18at 05:37; Admin Dose 4 MG; Start 06/25/18 at 14:30 Acetaminophen (Tylenol Tab) 650 mg Q6H PRN PO .PAIN 1-3 OR TEMP Last administered on 06/29/18at 05:34; Admin Dose 650 MG; Start 06/25/18 at 14:30 Acetaminophen (Tylenol Supp) 650 mg Q6H PRN [place] .PAIN 1-3 OR TEMP; Start 06/25/18 at 14:30 Docusate Sodium (Colace) 100 mg Q12H PRN PO .CONSTIPATION; Start 06/25/18 at 14:30 Magnesium Hydroxide (Milk Of Mag) 30 ml DAILY PRN PO .CONSTIPATION; Start 06/25/18 at 14:30 Bisacodyl (Dulcolax) 5 mg DAILY PRN PO .CONSTIPATION Last administered on 06/28/18at 05:56; Admin Dose 5 MG; Start 06/25/18 at 14:30 Pantoprazole (Protonix Tab) 40 mg DAILY@06 PO Last administered on 06/29/18 05 :33; Admin Dose 40 MG; Start 06/26/18 at 06:00 Cefepime HCl 50 ml @ 100 mls/hr Q12H IVPB Last administered on 06/29/18at 05:31; Admin Dose 100 MLS/HR; Start 06/27/18 at 17:00 Sodium Chloride 1,000 ml @ 50 mls/hr Q20H IV Last administered on 06/28/18at 22:55; Admin Dose 50 MLS/HR; Start 06/27/18 at 21:00 Vancomycin HCl (Vanco Iv Per Pharmacy) VANCOMYCIN PER PHARMACY PER PROTOCOL XX ; Start 06/27/18 at 21:00 Vancomycin HCl 250 ml @ 125 mls/hr Q12H IVPB Last administered on 06/29/18at 11:48; Admin Dose 125 MLS/HR; Start 06/28/18 at 11:00 Allopurinol (Zyloprim) 300 mg DAILY PO Last administered on 06/29/18at 10:13; Admin Dose 300 MG; Start 06/29/18 at 09:00 Allopurinol (Zyloprim) 300 mg DAILY PO ; Start 06/29/18 at 09:00 Hydroxyurea (Hydrea) 1,000 mg BID PO Last administered on 06/29/18at 10:16; Admin Dose 1,000 MG; Start 06/29/18 at 09:00 DIEGO BAKER M.D. June 29, 2018 13:09
[2018-06-29 15:24] LABS: CMV DNA QL SOURCE WHOLE BLOOD
[2018-06-29] MEDS ORDERED: VANCOMYCIN 1 GM 250 ML IVPB SCH (20:00)
[2018-06-30] VITALS (11 sets, daily range): BP systolic 118–157; BP diastolic 58–76; PULSE 91–105; RESP 18–21
[2018-06-30] MEDS: ACETAMINOPHEN 325 MG TAB PO PRN (00:31)
--- NOTE | 2018-06-30 07:50 | DS ---
DATE OF ADMISSION: 06/25/2018 DATE OF DISCHARGE: 06/30/2018 HISTORY OF PRESENT ILLNESS AND HOSPITAL COURSE: This is a 62-year-old female with no past medical hi story, questionable history of a tumor removed at [facility], presented to the Emergency Department a [facility] secondary to weakness, shortness of breath. No chest pain, palpitation. Blood pressure in the ER was 115/53. White count was 63,000, hemoglobin was 6.7, platelet count was 56. The patient had an ABG that showed pH of 7.46, pO2 57, pCO2 of 29. The patient had a CT of the abdom en and pelvis that showed no evidence of acute intra-abdominal pelvic process 1 to 2 mm nonobstructiv e stone, mild atherosclerotic disease of the aorta. The patient had a peripheral smear done that daly wed a mild flow cytometry with AML with immuno type by flow cytometry with anemia with monocytic diff erentiation, moderate normocytic, normochromic anemia, moderate thrombocytopenia. Patient was seen b zunilda Tejada and Dr. Schmidt for oncology consultation. The patient was kept on new could neutropeni c precautions. Patient was started on allopurinol for elevated uric acid. The patient will need bon e marrow biopsy and aspirate for FISH and cytogenetics and molecular analysis. Plan was to keep hemo globin greater than 7 and platelet count greater than 10. Since patient has a molecular analysis and cytogenetic given the complexity of the care she was recommended to go to a higher level for AML. S he needs to get transferred to [facility]. The patient also received MediPort for IV infusion of the chemo, also had an echo that showed EF of 60%. Multiple calls were given to [facility] for transfer; however, the patient was finally accepted and will be going to [facility] for further care for chemotherapy and further treatment. The patient was also had spiking fevers of 101. Patient was started on vancomycin and ce fepime. The patient's hemoglobin was 6.7 before discharge; however, had received 1 unit of blood. T he second unit will be given at [facility]. FINAL DISCHARGE DIAGNOSES: 1. Symptomatic anemia, leukocytosis, now with flow cytometry suggestive of AML. 2. Anemia, status post blood transfusion. 3. Hypertension. 4. Hyperlipidemia. 5. Obesity. 6. History of tumor removal from brain 10 years ago. 7. Neutropenic fever. DISCHARGE CONDITION: Stable. Patient is accepted at [facility] under Dr. . Dictated By: PAULA CARDENAS/JOSE ANGEL Conf#: [id number] DID#: [id number] CC: TUAN VIERA MD;*End*
== END 2018-06-30 05:23 | disposition short-term general hospital (02) | DRG 835 ==
LOC: E/R 09:56 → 2NE 13:51
PROVIDERS: ADMIT Internal Medicine Nephrology; ATTEND Internal Medicine Nephrology
PROC: 02H633Z Insertion of Infusion Device into Right Atrium, Percutaneous Approach (ICD-10-PCS; 2018-06-28)
PROC: B244ZZZ Ultrasonography of Right Heart (ICD-10-PCS; 2018-06-28)
PROC: B214YZZ Fluoroscopy of Right Heart using Other Contrast (ICD-10-PCS; 2018-06-28)
PROC: 0JH60WZ Insertion of Totally Implantable Vascular Access Device into Chest Subcutaneous Tissue and Fascia, Open Approach (ICD-10-PCS; principal; 2018-06-28 08:00)
DX: C92.00 Acute myeloblastic leukemia, not having achieved remission (principal); D61.818 Other pancytopenia; Z87.891 Personal history of nicotine dependence; I10 Essential (primary) hypertension; E78.5 Hyperlipidemia, unspecified; Z86.011 Personal history of benign neoplasm of the brain; E66.9 Obesity, unspecified; Z68.37 Body mass index [BMI] 37.0-37.9, adult; R50.81 Fever presenting with conditions classified elsewhere
CPT/HCPCS: 36415; 36430; 36561; 36600; 71045; 74176; 80048; 80053; 80202; 81001; 81003; 82607; 82728; 82746; 82803; 83010; 83036; 83540; 83605; 83615; 83735; 83880; 84100; 84484; 84560; 85014; 85018; 85025; 85045; 85049; 85362; 85378; 85384; 85610; 85651; 85670; 85730; 86038; 86078; 86140; 86644; 86850; 86900; 86901; 86920; 86945; 87086; 87496; 93005; 93306; J0692; J0696; J1644; J1940; J2250; J2405; J3010; J3370; J3475; J7030; J7040; P9016; P9035